=== PATIENT | male | born 1975 | race Hispanic/Latino ===

== ENCOUNTER 2018-03-11 14:28 | Emergency (ER) | payer OTHER ==
[~2018-03-11] VITALS: Ht 170.2 cm; Wt 98.9 kg
--- OUTSIDE RECORDS SUMMARY | 2018-03-11 14:31 | XMS REPORT ---
Author Author [facility] Address Unknown Phone Unavailable Care Team Providers Care [employer]r Name Role Phone Unavailable Unavailable Problems This patient has no known problems. Allergies, Adverse Reactions, Alerts This patient has no known allergies or adverse reactions. Medications This patient has no known medications. Encounters Start Date/Time End Date/Time Encounter Type Admission Type Attending Clinicians Care Facility Care Department Encounter ID 2017-04-29 13:14:17 2017-04-29 13:14:17 Outpatient [facility] [id number]
[2018-03-11 15:51] VITALS: BP 132/78
== END 2018-03-11 16:00 | disposition home or self-care (01) ==
LOC: FSED 14:28
DX: R53.1 Weakness (principal); K92.1 Melena
CPT/HCPCS: 80053; 81003; 82270; 85025; 85610; 99283

== ENCOUNTER 2019-02-18 04:21 | Emergency (ER) | payer OTHER ==
[~2019-02-18] VITALS: Ht 170.2 cm; Wt 98.9 kg
== END 2019-02-18 05:09 | disposition home or self-care (01) ==
LOC: FSED 04:21
DX: S29.012A Strain of muscle and tendon of back wall of thorax, initial encounter (principal); S39.012A Strain of muscle, fascia and tendon of lower back, initial encounter; W01.190A Fall on same level from slipping, tripping and stumbling with subsequent striking against furniture, initial encounter; Y92.003 Bedroom of unspecified non-institutional (private) residence as the place of occurrence of the external cause
CPT/HCPCS: 99283